=== PATIENT | male | born 1960 | race Caucasian/White ===

== ENCOUNTER → 2022-09-13 | Outpatient (CLI) | payer OTHER, SELFPAY ==
--- NOTE | 2022-09-13 06:51 | EKG12_ITS ---
Test Reason : PRE-OP Blood Pressure : / mmHG Vent. Rate : 065 BPM Atrial Rate : 065 BPM P-R Int : 170 ms QRS Dur : 112 ms QT Int : 394 ms P-R-T Axes : 039 -54 020 degrees QTc Int : 409 ms Normal sinus rhythm Possible Left atrial enlargement Incomplete right bundle branch block Left anterior fascicular block Cannot rule out Inferior infarct (masked by fascicular block?) , age undetermined Abnormal ECG Confirmed by BOO TONEY, EZRA ([id number]), telegraph editor ÁNGEL CABAN ([id number]) on 09/14/2022 9:13:21 AM Referred By: Jac Doty Confirmed By:EZRA HADDAD MD
== END | disposition home or self-care (01) ==
LOC: PSN 06:50
PROVIDERS: PCP Student in an Organized Health Care Education/Training Program; Referring Provider Orthopaedic Surgery; Visit Provider Orthopaedic Surgery
DX: Z01.810 Encounter for preprocedural cardiovascular examination (principal)
CPT/HCPCS: 93005